=== PATIENT | female | born 1995 | race Caucasian/White ===

== ENCOUNTER 2017-11-08 00:56 | Emergency (ER) | payer BC ==
[2017-11-08 01:15] VITALS: RESP 18
[2017-11-08 01:40] LABS: Appearance,Urine Turbid (Clear); Bacteria,Urine Moderate /hpf; Bilirubin,Urine Negative (Negative); Blood,Urine Large (Negative); Color,Urine Light Red; Glucose,Urine (UA) Negative (Negative); Ketones,Urine 2+ (Negative); Leukocyte Esterase,Urine Large (Negative); Mucus,Urine Moderate /hpf; Nitrite,Urine Positive (Negative); PH, Urine 5.5 (5.0-8.0); Protein,Urine 2+ (Negative); RBC,Urine >182 /hpf (0-5); Specific Gravity,Urine 1.015 (1.001-1.035); Squamous Epithelial Cell,Urine 16 /hpf (0-4); Urobilinogen,Urine <2.0 mg/dL (<2.0); WBC,Urine >182 /hpf (0-5)
[2017-11-08] MEDS ORDERED: KETOROLAC 30 MG/ML 1 ML VIAL IVP STA (01:46)
[2017-11-08] MEDS ORDERED: SODIUM CHLORIDE 0.9% 1,000 ML IV STA (01:46)
[2017-11-08] MEDS ORDERED: ONDANSETRON 4 MG/2 ML VIAL IVP STA (01:46)
[2017-11-08] MEDS ORDERED: cefTRIAXone IN SWFI 1,000 MG/10 ML SYRINGE IVP STA (01:47)
--- NOTE | 2017-11-08 01:58 | ED ---
General Adult HPI - General Chief complaint: Urogenital Stated complaint: female gu Time Seen by Provider: 11/08/17 01:44 Source: patient, RN notes reviewed Mode of arrival: wheelchair Limitations: no limitations - History of Present Illness Initial comments: 21 yo female presents to the ER with cc of of dysuria and left-sided flank pain. She states the dysuria started about once or . She states she developed the flank pain the last few days. She states that she is very tender to the left side of the flank. She denies any high fevers. She denies any history of kidney infections in the past. She denies any vaginal drainage or discharge. They were concerned due to the continued discomfort so they thought that they should be evaluated.Patient denies any recent fever, chills, shortness of breath, chest pain, numbness or tingling, constipation or diarrhea , headaches or visual changes, or any other current symptoms. - Related Data Home Medications Medication Instructions Recorded Confirmed Azithromycin [Zithromax] 1 gm PO ONCE 08/08/17 08/08/17 Previous Rx's Medication Instructions Recorded Amoxicillin/Potassium Clav 1 tab PO Q12HR #14 tab 08/08/17 [Augmentin 875-125 Tablet] Ibuprofen [Motrin] 600 mg PO Q8HR PRN #24 tab 08/08/17 Cephalexin [Keflex] 500 mg PO TID 10 Days cap 11/08/17 Allergies Allergy/AdvReac Type Severity Reaction Status Date / Time No Known Allergies Allergy Verified 11/08/17 01:15 Review of Systems ROS Statement: Those systems with pertinent positive or pertinent negative responses have been documented in the HPI. ROS Other: All systems not noted in ROS Statement are negative. Past Medical History Past Medical History: No Reported History History of Any Multi-Drug Resistant Organisms: None Reported Past Surgical History: Cholecystectomy Past Psychological History: No Psychological Hx Reported Smoking Status: Never smoker Past Alcohol Use History: None Reported Past Drug Use History: None Reported General Exam - General Exam Comments Initial Comments: General: The patient is awake and alert, in no distress, and does not appear acutely ill. Eye: Pupils are equal, round and reactive to light, extra-ocular movements are intact; there is normal conjunctiva bilaterally. No signs of icterus. Ears, nose, mouth and throat: There are moist mucous membranes. Neck: The neck is supple, there is no tenderness. Cardiovascular: There is a regular rate and rhythm. No murmur, rub or gallop is appreciated. Respiratory: Lungs are clear to auscultation, respirations are non-labored, breath sounds are equal. No wheezes, stridor, rales, or rhonchi. Gastrointestinal: Soft, non-distended, non-tender abdomen without masses or organomegaly noted. There is no rebound or guarding present. Left sided CVA tenderness. Bowel sounds are unremarkable. Back: There is no tenderness to palpation in the midline. There is no obvious deformity. No rashes noted. Musculoskeletal: Normal ROM, no tenderness, There is no pedal edema. There is no calf tenderness or swelling. Sensation intact. Pulses equal bilaterally 2+. Neurological: CN II-XII intact, There are no obvious motor or sensory deficits. Coordination appears grossly intact. Speech is normal. Skin: Skin is warm and dry and no rashes or lesions are noted. Psychiatric: Cooperative, appropriate mood & affect, normal judgment. Limitations: no limitations Course Vital Signs 11/08/17 01:11 Temperature 99.1 F Pulse Rate 74 Respiratory 18 Rate Blood Pressure 118/61 O2 Sat by Pulse 99 Oximetry Medical Decision Making - Medical Decision Making 21 yo female presents to the emergency department with a chief complaint of left -sided flank pain. At this time there is concern for pyelo but we did give the patient Rocephin and fluids here. We did discuss close follow-up we did discuss return parameters all questions. Patient stated he understood and he is given this plan. All questions have been answered. Discharged. - Lab Data Result diagrams: 11/08/17 02:35 11/08/17 02:35 Lab Results 11/08/17 11/08/17 11/08/17 Range/Units 01:18 01:18 02:35 WBC 17.4 H (3.8-10.6) k/uL RBC 4.33 (3.80-5.40) m/uL Hgb 12.4 (11.4-16.0) gm/dL Hct 38.0 (34.0-46.0) % MCV 87.6 (80.0-100.0) fL MCH 28.7 (25.0-35.0) pg MCHC 32.8 (31.0-37.0) g/dL RDW 13.7 (11.5-15.5) % Plt Count 313 (150-450) k/uL Neutrophils % 92 % Lymphocytes % 5 % Monocytes % 2 % Eosinophils % 0 % Basophils % 0 % Neutrophils # 16.0 H (1.3-7.7) k/uL Lymphocytes # 0.9 L (1.0-4.8) k/uL Monocytes # 0.4 (0-1.0) k/uL Eosinophils # 0.0 (0-0.7) k/uL Basophils # 0.0 (0-0.2) k/uL Sodium (137-145) mmol/L Potassium (3.5-5.1) mmol/L Chloride (98-107) mmol/L Carbon Dioxide (22-30) mmol/L Anion Gap mmol/L BUN (7-17) mg/dL Creatinine (0.52-1.04) mg/dL Est GFR (MDRD) Af Amer (>60 ml/min/1.73 sqM) Est GFR (MDRD) Non-Af (>60 ml/min/1.73 sqM) Glucose (74-99) mg/dL Calcium (8.4-10.2) mg/dL Total Bilirubin (0.2-1.3) mg/dL AST (14-36) U/L ALT (9-52) U/L Alkaline Phosphatase (38-126) U/L Total Protein (6.3-8.2) g/dL Albumin (3.5-5.0) g/dL Urine Color Light Red Urine Appearance Turbid H (Clear) Urine pH 5.5 (5.0-8.0) Ur Specific [place] 1.015 (1.001-1.035) Urine Protein 2+ H (Negative) Urine Glucose (UA) Negative (Negative) Urine Ketones 2+ H (Negative) Urine Blood Large H (Negative) Urine Nitrite Positive H (Negative) Urine Bilirubin Negative (Negative) Urine Urobilinogen <2.0 (<2.0) mg/dL Ur Leukocyte Esterase Large H (Negative) Urine RBC >182 H (0-5) /hpf Urine WBC >182 H (0-5) /hpf Urine WBC Clumps Many H (None) /hpf Ur Squamous Epith Cells 16 H (0-4) /hpf Urine Bacteria Moderate H (None) /hpf Urine Mucus Moderate H (None) /hpf Urine HCG, Qual Not Detected (Not Detectd) 11/08/17 Range/Units 02:35 WBC (3.8-10.6) k/uL RBC (3.80-5.40) m/uL Hgb (11.4-16.0) gm/dL Hct (34.0-46.0) % MCV (80.0-100.0) fL MCH (25.0-35.0) pg MCHC (31.0-37.0) g/dL RDW (11.5-15.5) % Plt Count (150-450) k/uL Neutrophils % % Lymphocytes % % Monocytes % % Eosinophils % % Basophils % % Neutrophils # (1.3-7.7) k/uL Lymphocytes # (1.0-4.8) k/uL Monocytes # (0-1.0) k/uL Eosinophils # (0-0.7) k/uL Basophils # (0-0.2) k/uL Sodium 143 (137-145) mmol/L Potassium 4.1 (3.5-5.1) mmol/L Chloride 102 (98-107) mmol/L Carbon Dioxide 27 (22-30) mmol/L Anion Gap 14 mmol/L BUN 12 (7-17) mg/dL Creatinine 0.60 (0.52-1.04) mg/dL Est GFR (MDRD) Af Amer >60 (>60 ml/min/1.73 sqM) Est GFR (MDRD) Non-Af >60 (>60 ml/min/1.73 sqM) Glucose 104 H (74-99) mg/dL Calcium 9.8 (8.4-10.2) mg/dL Total Bilirubin 0.7 (0.2-1.3) mg/dL AST 21 (14-36) U/L ALT 22 (9-52) U/L Alkaline Phosphatase 73 (38-126) U/L Total Protein 7.7 (6.3-8.2) g/dL Albumin 4.4 (3.5-5.0) g/dL Urine Color Urine Appearance (Clear) Urine pH (5.0-8.0) Ur Specific [place] (1.001-1.035) Urine Protein (Negative) Urine Glucose (UA) (Negative) Urine Ketones (Negative) Urine Blood (Negative) Urine Nitrite (Negative) Urine Bilirubin (Negative) Urine Urobilinogen (<2.0) mg/dL Ur Leukocyte Esterase (Negative) Urine RBC (0-5) /hpf Urine WBC (0-5) /hpf Urine WBC Clumps (None) /hpf Ur Squamous Epith Cells (0-4) /hpf Urine Bacteria (None) /hpf Urine Mucus (None) /hpf Urine HCG, Qual (Not Detectd) - Radiology Data Radiology results: report reviewed, image reviewed Disposition Clinical Impression: Acute pyelonephritis Disposition: HOME SELF-CARE Condition: Stable Instructions: Kidney Infection (ED) Additional Instructions: Please use medication as discussed. Please follow up with family doctor if symptoms have not improved over the next two days. Please return to the emergency room if your symptoms increase or worsen or for any other concerns. Prescriptions: Cephalexin [Keflex] 500 mg PO TID 10 Days cap Referrals: [place] Alexander MD [STAFF PHYSICIAN] - 1-2 days Time of Disposition: 03:23
[2017-11-08 02:45] LABS: Basophils % (A) 0 %; Eosinophils % (A) 0 %; HGB 12.4 gm/dL (11.4-16.0); Lymphocytes # (A) 0.9 k/uL (1.0-4.8); Lymphocytes % (A) 5 %; MCH 28.7 pg (25.0-35.0); MCHC 32.8 g/dL (31.0-37.0); MCV 87.6 fL (80.0-100.0); Mean Platelet Volume 6.7; Monocytes # (A) 0.4 k/uL (0-1.0); Monocytes % (A) 2 %; Neutrophils % (A) 92 %; Platelet Count 313 k/uL (150-450); RBC 4.33 m/uL (3.80-5.40); RDW 13.7 % (11.5-15.5); WBC 17.4 k/uL (3.8-10.6)
[2017-11-08 03:01] LABS: ALT 22 U/L (9-52); AST 21 U/L (14-36); Albumin 4.4 g/dL (3.5-5.0); Alkaline Phosphatase 73 U/L (38-126); Anion Gap 14 mmol/L; Blood Urea Nitrogen 12 mg/dL (7-17); Calcium 9.8 mg/dL (8.4-10.2); Carbon Dioxide 27 mmol/L (22-30); Chloride 102 mmol/L (98-107); Glucose 104 mg/dL (74-99); Potassium 4.1 mmol/L (3.5-5.1); Sodium 143 mmol/L (137-145); Total Bilirubin 0.7 mg/dL (0.2-1.3); Total Protein 7.7 g/dL (6.3-8.2)
--- NOTE | 2017-11-08 03:15 | CT ---
EXAM: CT Abdomen and Pelvis Without Intravenous Contrast CLINICAL HISTORY: Reason: Pain TECHNIQUE: Axial computed tomography images of the abdomen and pelvis without intravenous contrast. CTDI is 5.8 mGy and DLP is 279.6 mGy-cm. This CT exam was performed using one or more of the following dose reduction techniques: automated exposure control, adjustment of the mA and/or kV according to patient size, and/or use of iterative reconstruction technique. COMPARISON: No relevant prior studies available. FINDINGS: Lower thorax: No acute findings. ABDOMEN: Liver: Unremarkable. Gallbladder and bile ducts: Prior cholecystectomy. No ductal dilation. Pancreas: Unremarkable. No ductal dilation. Spleen: Unremarkable. No splenomegaly. Adrenals: Unremarkable. No mass. Kidneys and ureters: Unremarkable. No obstructing stones. No hydronephrosis. Stomach and bowel: Unremarkable. No obstruction. No mucosal thickening. Appendix: No findings to suggest acute appendicitis. PELVIS: Bladder: Mild circumferential bladder wall thickening with associated inflammatory change. Findings may suggest cystitis. No stones. Reproductive: Unremarkable as visualized. ABDOMEN and PELVIS: Intraperitoneal space: Unremarkable. No free air. No significant fluid collection. Bones/joints: No acute fracture. No dislocation. Soft tissues: Unremarkable. Vasculature: Unremarkable. No abdominal aortic aneurysm. Lymph nodes: Unremarkable. No enlarged lymph nodes. IMPRESSION: Findings suggestive of cystitis. Please correlate with urinalysis.
[2017-11-08 04:06] VITALS: BP 95/49; PULSE 75; TEMP 97.9
== END 2017-11-08 04:04 | disposition home or self-care (01) ==
LOC: EC 00:56
DX: N10 Acute pyelonephritis (principal); Z90.49 Acquired absence of other specified parts of digestive tract
CPT/HCPCS: 36415; 80053; 85025; 81001; 81025; 87086; 74176; 99284; 96374; 96375 ×2; 96361 ×2; J2405; J0696; J1885; 87077; 87186

== ENCOUNTER 2019-04-10 07:51 | Emergency (ER) | payer BC ==
[2019-04-10 08:16] VITALS: RESP 18
[2019-04-10] MEDS ORDERED: ACETAMINOPHEN TAB 325 MG TAB PO STA (08:25)
--- NOTE | 2019-04-10 09:13 | ED ---
General Adult HPI - General Chief complaint: Upper Respiratory Infection Stated complaint: congestion/headache/trouble swallowing Time Seen by Provider: 04/10/19 08:10 Source: patient, family, RN notes reviewed Mode of arrival: ambulatory Limitations: no limitations - History of Present Illness Initial comments: 23-year-old female presents to the emergency department for chief complaint of sore throat. Patient states that this is been ongoing since last Thursday which is approximately 5 days ago. States that she does not seem to be getting better. States that she is having pain with swallowing water but does not have any difficulty. Patient also complains of some intermittent headache and dizziness. Complains of some mild nausea as well denies any abdominal pain. Patient admits to minimal congestion and ear pressure. States that she was seen at urgent care approximately 2 days ago and started on an antibiotic for the slight urinary tract infection. Denies any dysuria or abdominal pain. Admits to chills but denies fevers. Patient has no other complaints at this time including shortness of breath, chest pain, abdominal pain, nausea or vomiting, headache, or visual changes. - Related Data Home Medications Medication Instructions Recorded Confirmed Ciprofloxacin HCl [Cipro] 500 mg PO Q12HR 04/10/19 04/10/19 Previous Rx's Medication Instructions Recorded Ibuprofen [Motrin] 600 mg PO Q8HR PRN #24 tab 08/08/17 Amoxicillin/Potassium Clav 1 tab PO Q12HR #20 tab 04/10/19 [Augmentin 875-125 Tablet] Allergies Allergy/AdvReac Type Severity Reaction Status Date / Time No Known Allergies Allergy Verified 04/10/19 08:46 Review of Systems ROS Statement: Those systems with pertinent positive or pertinent negative responses have been documented in the HPI. ROS Other: All systems not noted in ROS Statement are negative. Past Medical History Past Medical History: No Reported History History of Any Multi-Drug Resistant Organisms: None Reported Past Surgical History: Cholecystectomy Past Psychological History: No Psychological Hx Reported Smoking Status: Never smoker Past Alcohol Use History: None Reported Past Drug Use History: None Reported General Exam Limitations: no limitations General appearance: alert, in no apparent distress Head exam: Present: atraumatic, normocephalic, normal inspection Eye exam: Present: normal appearance, PERRL, EOMI. Absent: scleral icterus, conjunctival injection, periorbital swelling ENT exam: Present: normal exam, mucous membranes moist, TM's normal bilaterally, normal external ear exam. Absent: normal oropharynx (Right tonsil has significant exudate noted. Uvula is midline. Tonsillar pillars appear normal, no evidence of peritonsillar abscess.) Neck exam: Present: normal inspection, full ROM, lymphadenopathy (Lymphadenopathy noted of the right submandibular lymph node). Absent: tenderness, meningismus Respiratory exam: Present: normal lung sounds bilaterally. Absent: respiratory distress, wheezes, rales, rhonchi, stridor Cardiovascular Exam: Present: regular rate, normal rhythm, normal heart sounds. Absent: systolic murmur, diastolic murmur, rubs, gallop, clicks Neurological exam: Present: alert, oriented X3, CN II-XII intact Psychiatric exam: Present: normal affect, normal mood Course Vital Signs 04/10/19 04/10/19 04/10/19 08:11 11:08 11:42 Temperature 99.7 F H 98.6 F 98.6 F Pulse Rate 106 H 80 80 Respiratory 18 18 18 Rate Blood Pressure 120/80 108/73 108/73 O2 Sat by Pulse 98 98 98 Oximetry Medical Decision Making - Medical Decision Making 23-year-old female presents to the emergency determine for chief complaint of sore throat. States this has been ongoing since last week. Does not seem to be getting better. States she is having pain with swallowing but is able to swallow solids and liquids. On exam patient does have significant exudate noted of the right tonsil as well as some mild exudate noted of the left tonsil. However no fullness noted of the peritonsillar pillar. Uvula is midline. There is no evidence of peritonsillar abscess. Patient is handling oral secretions without difficulty. Patient was started on Keflex for possible urinary tract infection. Strep and heterophile were negative. She did have a low-grade temp so was started on fluids and basic labs were obtained. Patient is a white count of 11. CMP unremarkable. Urine contaminated with squamous cells but culture pending. She was given 10 of Decadron as well as Toradol and Tylenol. Patient reevaluated, feeling somewhat better. Patient passed oral challenge Test. Patient was also evaluated by Dr. Fountain. At this time patient will be started on Augmentin and Keflex. No evidence of peritonsillar abscess, uvula is midline without fullness noted of the peritonsillar pillar. However recommended returning if she has worsening symptoms or is unable to swallow. She was given ENT referral. - Lab Data Result diagrams: 04/10/19 08:54 04/10/19 08:54 Lab Results 04/10/19 04/10/19 04/10/19 Range/Units 08:54 08:54 08:54 WBC (3.8-10.6) k/uL RBC (3.80-5.40) m/uL Hgb (11.4-16.0) gm/dL Hct (34.0-46.0) % MCV (80.0-100.0) fL MCH (25.0-35.0) pg MCHC (31.0-37.0) g/dL RDW (11.5-15.5) % Plt Count (150-450) k/uL Neutrophils % % Lymphocytes % % Monocytes % % Eosinophils % % Basophils % % Neutrophils # (1.3-7.7) k/uL Lymphocytes # (1.0-4.8) k/uL Monocytes # (0-1.0) k/uL Eosinophils # (0-0.7) k/uL Basophils # (0-0.2) k/uL Sodium (137-145) mmol/L Potassium (3.5-5.1) mmol/L Chloride (98-107) mmol/L Carbon Dioxide (22-30) mmol/L Anion Gap mmol/L BUN (7-17) mg/dL Creatinine (0.52-1.04) mg/dL Est GFR (CKD-EPI)AfAm (>60 ml/min/1.73 sqM) Est GFR (CKD-EPI)NonAf (>60 ml/min/1.73 sqM) Glucose (74-99) mg/dL Calcium (8.4-10.2) mg/dL Total Bilirubin (0.2-1.3) mg/dL AST (14-36) U/L ALT (9-52) U/L Alkaline Phosphatase (38-126) U/L Total Protein (6.3-8.2) g/dL Albumin (3.5-5.0) g/dL Urine Color Urine Appearance (Clear) Urine pH (5.0-8.0) Ur Specific [place] (1.001-1.035) Urine Protein (Negative) Urine Glucose (UA) (Negative) Urine Ketones (Negative) Urine Blood (Negative) Urine Nitrite (Negative) Urine Bilirubin (Negative) Urine Urobilinogen (<2.0) mg/dL Ur Leukocyte Esterase (Negative) Urine RBC (0-5) /hpf Urine WBC (0-5) /hpf Ur Squamous Epith Cells (0-4) /hpf Urine Bacteria (None) /hpf Urine Mucus (None) /hpf Urine HCG, Qual Not Detected (Not Detectd) Heterophile Antibody Negative (Negative) Group A Strep Rapid Negative (Negative) 04/10/19 04/10/19 04/10/19 Range/Units 08:54 08:54 08:54 WBC 11.1 H (3.8-10.6) k/uL RBC 4.41 (3.80-5.40) m/uL Hgb 13.1 (11.4-16.0) gm/dL Hct 38.6 (34.0-46.0) % MCV 87.5 (80.0-100.0) fL MCH 29.7 (25.0-35.0) pg MCHC 33.9 (31.0-37.0) g/dL RDW 15.1 (11.5-15.5) % Plt Count 267 (150-450) k/uL Neutrophils % 84 % Lymphocytes % 8 % Monocytes % 6 % Eosinophils % 0 % Basophils % 0 % Neutrophils # 9.3 H (1.3-7.7) k/uL Lymphocytes # 0.9 L (1.0-4.8) k/uL Monocytes # 0.7 (0-1.0) k/uL Eosinophils # 0.0 (0-0.7) k/uL Basophils # 0.0 (0-0.2) k/uL Sodium 139 (137-145) mmol/L Potassium 4.2 (3.5-5.1) mmol/L Chloride 99 (98-107) mmol/L Carbon Dioxide 27 (22-30) mmol/L Anion Gap 13 mmol/L BUN 7 (7-17) mg/dL Creatinine 0.59 (0.52-1.04) mg/dL Est GFR (CKD-EPI)AfAm >90 (>60 ml/min/1.73 sqM) Est GFR (CKD-EPI)NonAf >90 (>60 ml/min/1.73 sqM) Glucose 88 (74-99) mg/dL Calcium 9.3 (8.4-10.2) mg/dL Total Bilirubin 0.6 (0.2-1.3) mg/dL AST 37 H (14-36) U/L ALT 29 (9-52) U/L Alkaline Phosphatase 52 (38-126) U/L Total Protein 7.8 (6.3-8.2) g/dL Albumin 4.3 (3.5-5.0) g/dL Urine Color Yellow Urine Appearance Turbid H (Clear) Urine pH 6.0 (5.0-8.0) Ur Specific [place] 1.028 (1.001-1.035) Urine Protein 1+ H (Negative) Urine Glucose (UA) Negative (Negative) Urine Ketones 1+ H (Negative) Urine Blood Trace H (Negative) Urine Nitrite Negative (Negative) Urine Bilirubin Negative (Negative) Urine Urobilinogen <2.0 (<2.0) mg/dL Ur Leukocyte Esterase Large H (Negative) Urine RBC 2 (0-5) /hpf Urine WBC 48 H (0-5) /hpf Ur Squamous Epith Cells 27 H (0-4) /hpf Urine Bacteria Occasional H (None) /hpf Urine Mucus Many H (None) /hpf Urine HCG, Qual (Not Detectd) Heterophile Antibody (Negative) Group A Strep Rapid (Negative) Disposition Clinical Impression: Tonsillitis, Sore throat Disposition: HOME SELF-CARE Condition: Good Instructions (If sedation given, give patient instructions): Pharyngitis (ED), Tonsillectomy in Children (DC) Additional Instructions: Please out of Keflex. Please follow-up with primary care and ENT in 1-2 days. If you have any worsening symptoms or are unable to swallow liquids return immediately to the emergency department. Prescriptions: Amoxicillin/Potassium Clav [Augmentin 875-125 Tablet] 1 tab PO Q12HR #20 tab Is patient prescribed a controlled substance at d/c from ED?: No Referrals: Viet Sullivan MD [STAFF PHYSICIAN] - 1-2 days [place] Alexander MD [STAFF PHYSICIAN] - 1-2 days Time of Disposition: 11:36
[2019-04-10 09:38] LABS: Appearance,Urine Turbid (Clear); Bacteria,Urine Occasional /hpf; Bilirubin,Urine Negative (Negative); Blood,Urine Trace (Negative); Color,Urine Yellow; Glucose,Urine (UA) Negative (Negative); Ketones,Urine 1+ (Negative); Leukocyte Esterase,Urine Large (Negative); Mucus,Urine Many /hpf; Nitrite,Urine Negative (Negative); Protein,Urine 1+ (Negative); RBC,Urine 2 /hpf (0-5); Specific Gravity,Urine 1.028 (1.001-1.035); Squamous Epithelial Cell,Urine 27 /hpf (0-4); Urobilinogen,Urine <2.0 mg/dL (<2.0); WBC,Urine 48 /hpf (0-5)
[2019-04-10] MEDS ORDERED: KETOROLAC 30 MG/ML 1 ML VIAL IVP STA (10:35)
[2019-04-10] MEDS ORDERED: DEXAMETHASONE SOD PHOSPHATE 10 MG/ML 1 ML VIAL IV STA (10:35)
[2019-04-10] MEDS ORDERED: SODIUM CHLORIDE 0.9% 1,000 ML IV STA (10:35)
[2019-04-10 11:01] LABS: Basophils % (A) 0 %; Eosinophils % (A) 0 %; HCT 38.6 % (34.0-46.0); HGB 13.1 gm/dL (11.4-16.0); Lymphocytes # (A) 0.9 k/uL (1.0-4.8); Lymphocytes % (A) 8 %; MCH 29.7 pg (25.0-35.0); MCHC 33.9 g/dL (31.0-37.0); MCV 87.5 fL (80.0-100.0); Mean Platelet Volume 6.8; Monocytes # (A) 0.7 k/uL (0-1.0); Monocytes % (A) 6 %; Neutrophils # (A) 9.3 k/uL (1.3-7.7); Neutrophils % (A) 84 %; Platelet Count 267 k/uL (150-450); RBC 4.41 m/uL (3.80-5.40); RDW 15.1 % (11.5-15.5); WBC 11.1 k/uL (3.8-10.6)
[2019-04-10 11:05] LABS: African American GFR (CKD) >90 (>60 ml/min/1.73 sqM); Albumin 4.3 g/dL (3.5-5.0); Anion Gap 13 mmol/L; Blood Urea Nitrogen 7 mg/dL (7-17); Calcium 9.3 mg/dL (8.4-10.2); Carbon Dioxide 27 mmol/L (22-30); Chloride 99 mmol/L (98-107); Glucose 88 mg/dL (74-99); Sodium 139 mmol/L (137-145); Total Bilirubin 0.6 mg/dL (0.2-1.3); Total Protein 7.8 g/dL (6.3-8.2)
[2019-04-10 11:08] LABS: Potassium 4.2 mmol/L (3.5-5.1)
[2019-04-10 11:09] VITALS: BP 108/73; PULSE 80; TEMP 98.6
[2019-04-10 11:09] LABS: ALT 29 U/L (9-52); AST 37 U/L (14-36); Alkaline Phosphatase 52 U/L (38-126)
[2019-04-10] MEDS ORDERED: AMOXIC-POT CLAV 875MG STARTER 2 EACH TABLET PO STA (11:38)
== END 2019-04-10 11:49 | disposition home or self-care (01) ==
LOC: EC 07:51
DX: J03.90 Acute tonsillitis, unspecified (principal); R82.998 Other abnormal findings in urine; R42 Dizziness and giddiness; R11.0 Nausea; N39.0 Urinary tract infection, site not specified; Z90.49 Acquired absence of other specified parts of digestive tract
CPT/HCPCS: 36415; 80053; 85025; 86308; 81001; 81025; 87081; 87430; 99284; 96374; 96375; 96361; J1100; J1885

== ENCOUNTER 2019-04-12 09:25 | Emergency (ER) | payer BC ==
[2019-04-12 09:33] VITALS: BP 108/73
[2019-04-12] MEDS ORDERED: methylPREDNISolone SOD SUCCI 125 MG/2 ML VIAL IV STA (10:19)
[2019-04-12] MEDS ORDERED: KETOROLAC 30 MG/ML 1 ML VIAL IVP STA (10:19)
[2019-04-12] MEDS ORDERED: SODIUM CHLORIDE 0.9% 1,000 ML IV ONE (10:19)
--- NOTE | 2019-04-12 10:55 | ED ---
ENT HPI - General Chief complaint: ENT Stated complaint: sore throat recheck Time Seen by Provider: 04/12/19 09:53 Source: patient, RN notes reviewed, old records reviewed Mode of arrival: ambulatory - History of Present Illness Initial comments: Patient is a 23-year-old female presents for reevaluation for sore throat. Was diagnosed with tonsillitis and started on Augmentin on Thursday. Patient states that she has had increased swelling and pain of her tonsils. Patient here for recheck. She has had no fever since that time. She states she does take a lot of Motrin to help her with swallowing. She denies any other significant complaints. - Related Data Previous Rx's Medication Instructions Recorded Ibuprofen [Motrin] 600 mg PO Q8HR PRN #24 tab 08/08/17 Amoxicillin/Potassium Clav 1 tab PO Q12HR #20 tab 04/10/19 [Augmentin 875-125 Tablet] predniSONE 10 mg PO DAILY #15 tab 04/12/19 Allergies Allergy/AdvReac Type Severity Reaction Status Date / Time No Known Allergies Allergy Verified 04/12/19 10:00 Review of Systems ROS Statement: Those systems with pertinent positive or pertinent negative responses have been documented in the HPI. ROS Other: All systems not noted in ROS Statement are negative. Past Medical History Past Medical History: No Reported History History of Any Multi-Drug Resistant Organisms: None Reported Past Surgical History: Cholecystectomy Past Psychological History: No Psychological Hx Reported Smoking Status: Never smoker Past Alcohol Use History: None Reported Past Drug Use History: None Reported General Exam - General Exam Comments Initial Comments: 23-year-old female. Alert and oriented 3. No significant distress. General appearance: alert Head exam: Present: atraumatic, normocephalic, normal inspection ENT exam: Present: normal exam, mucous membranes moist, TM's normal bilaterally, other (Worsening tonsillar swelling over the right. Uvula is midline.). Absent: normal oropharynx (From his oropharynx, evidence of exudates.) Neck exam: Present: normal inspection. Absent: tenderness, meningismus, lymph adenopathy Respiratory exam: Present: normal lung sounds bilaterally. Absent: respiratory distress, wheezes, rales, rhonchi, stridor Cardiovascular Exam: Present: regular rate GI/Abdominal exam: Present: soft, normal bowel sounds. Absent: distended, tenderness, guarding, rebound, rigid Extremities exam: Present: normal inspection, full ROM, normal capillary refill. Absent: tenderness, pedal edema, joint swelling, calf tenderness Back exam: Present: normal inspection Neurological exam: Present: alert, oriented X3, CN II-XII intact Psychiatric exam: Present: normal affect, normal mood Skin exam: Present: warm, dry, intact, normal color. Absent: rash Course Vital Signs 04/12/19 09:28 Temperature 97.9 F Pulse Rate 80 Respiratory 18 Rate Blood Pressure 108/73 O2 Sat by Pulse 98 Oximetry Medical Decision Making - Medical Decision Making 23-year-old female presents for recheck for sore throat. She's been on Augmentin for 3 days. At this time Patient states that her initial strep and heterophile are negative. Patient does have evidence of exudates, worsening swelling over the right tonsil. No sign for today. Tonsillar abscess at this time. She has no fever. She was given fluids, Toradol and Solu-Medrol. Patient had mono panels running. Patient will be discharged at this time a prescription for Magic mouthwash, Solu-Medrol. Discussed close follow-up with primary care doctor and ENT specialist. Discussed she can continue the Augmentin, however symptoms are most likely related to viral pharyngitis. - Lab Data Result diagrams: 04/12/19 10:40 Lab Results 04/12/19 04/12/19 04/12/19 Range/Units 10:40 10:40 10:40 WBC 7.9 (3.8-10.6) k/uL RBC 4.36 (3.80-5.40) m/uL Hgb 12.7 (11.4-16.0) gm/dL Hct 38.1 (34.0-46.0) % MCV 87.4 (80.0-100.0) fL MCH 29.2 (25.0-35.0) pg MCHC 33.4 (31.0-37.0) g/dL RDW 14.3 (11.5-15.5) % Plt Count 282 (150-450) k/uL Neutrophils % 65 % Lymphocytes % 24 % Monocytes % 5 % Eosinophils % 2 % Basophils % 1 % Neutrophils # 5.1 (1.3-7.7) k/uL Lymphocytes # 1.9 (1.0-4.8) k/uL Monocytes # 0.4 (0-1.0) k/uL Eosinophils # 0.1 (0-0.7) k/uL Basophils # 0.1 (0-0.2) k/uL Heterophile Antibody Negative (Negative) Group A Strep Rapid Negative (Negative) Disposition Clinical Impression: Tonsillitis Disposition: HOME SELF-CARE Condition: Good Instructions (If sedation given, give patient instructions): Pharyngitis (ED) Additional Instructions: Patient denies use of steroids as prescribed. Have close follow-up with primary care doctor. Return to the emergency department if any alarming signs or symptoms occur. Prescriptions: predniSONE 10 mg PO DAILY #15 tab Is patient prescribed a controlled substance at d/c from ED?: No Referrals: None,Stated [Primary Care Provider] - 1-2 days Time of Disposition: 11:40
[2019-04-12 11:16] LABS: Basophils # (A) 0.1 k/uL (0-0.2); Basophils % (A) 1 %; Eosinophils # (A) 0.1 k/uL (0-0.7); Eosinophils % (A) 2 %; HCT 38.1 % (34.0-46.0); HGB 12.7 gm/dL (11.4-16.0); Lymphocytes # (A) 1.9 k/uL (1.0-4.8); Lymphocytes % (A) 24 %; MCH 29.2 pg (25.0-35.0); MCHC 33.4 g/dL (31.0-37.0); MCV 87.4 fL (80.0-100.0); Mean Platelet Volume 6.9; Monocytes # (A) 0.4 k/uL (0-1.0); Monocytes % (A) 5 %; Neutrophils # (A) 5.1 k/uL (1.3-7.7); Neutrophils % (A) 65 %; Platelet Count 282 k/uL (150-450); RBC 4.36 m/uL (3.80-5.40); RDW 14.3 % (11.5-15.5); WBC 7.9 k/uL (3.8-10.6)
[2019-04-12 12:14] VITALS: PULSE 71; RESP 19; TEMP 98.9
[2019-04-12 17:38] LABS: EBV-EA (IgG) <0.2 AI; EBV-EBNA(IgG) <0.2 AI; EBV-VCA (IgG) <0.2 AI
== END 2019-04-12 12:13 | disposition home or self-care (01) ==
LOC: EC 09:25
DX: J03.90 Acute tonsillitis, unspecified (principal)
CPT/HCPCS: 36415; 86665 ×2; 86663; 85025; 86308; 86664; 87081; 87430; 99284; 96374; 96375; 96361; J2930; J1885